=== PATIENT | female | born 1945 | race Caucasian/White ===

== ENCOUNTER 2016-06-02 19:21 | Emergency (ER) | payer MEDICARE ==
[~2016-06-02] VITALS: Ht 172.7 cm; Wt 99.8 kg
[2016-06-02 19:21] VITALS: BP 142/59; PULSE 88; RESP 20; TEMP 97.5; O2SAT 99
--- NOTE | 2016-06-02 19:21 | NUR ---
Patient to ER bed 1 to gown for evaluation. Side rails up. Report given to Isabella PRESTON.
--- NOTE | 2016-06-02 19:21 | NUR ---
Teressa mcginnis in ED - 06/02/16 at 1954 by MOON [facility] rails up. Report given to LEA PRESTON.
[2016-06-02] MEDS ORDERED: NACL 0.9% 1,000 ML IV SCH (19:27)
--- NOTE | 2016-06-02 19:30 | NUR ---
Pt brought in by ALS (whom reports pt was hypotensive en route) BP currently 142/59. Pt [place] was [place] and started feeling lightheaded/dizziness/diaphoretic. Pt afebrile. Pt not complaining of any pain at this time. Pt taking lisinopril and humalog at home. Glucose also checked en route, per pt 225. 20g to L AC placed by paramedics, currently receiving fluids. No acute distress noted at this time. Respirations even and unlabored. Will continue to monitor.
--- NOTE | 2016-06-02 19:46 | NUR ---
ER Dr. Lane at bedside examining patient.
[2016-06-02] MEDS ORDERED: LISI2.5T48 PO (19:58)
[2016-06-02] MEDS ORDERED: ASPI-1063 PO (19:59)
[2016-06-02] MEDS ORDERED: INSU100V7 SUBCUT ×2 (19:59→20:00)
[2016-06-02] MEDS ORDERED: Lisinopril PO (20:02)
[2016-06-02 20:05] LABS: ANION GAP 7 (5-15); CALCIUM 9.4 mg/dL (8.4-11.0); CHLORIDE 97 mmol/L (98-107); CREATININE 1.37 mg/dL (0.55-1.30); GLUCOSE 301 mg/dL (70-99); INR 1.1 (0.8-1.2); POTASSIUM 4.5 mmol/L (3.5-5.1); PROTHROMBIN TIME 11.7 SECS (9.5-12.5); SODIUM SERUM 131 mmol/L (136-145); UREA NITROGEN, BLOOD 25 mg/dL (8-21)
[2016-06-02 20:10] LABS: ALANINE AMINOTRANSFERASE 48 U/L (12-78); ALBUMIN 3.8 g/dL (3.4-4.8); ASPARTATE AMINOTRANSFERASE 35 U/L (10-37); TOTAL BILIRUBIN 0.5 mg/dL (0.0-1.0); TOTAL PROTEIN, SERUM 7.9 g/dL (6.4-8.3)
[2016-06-02 20:11] LABS: MEAN CORPUSCULAR HEMOGLOBIN 32 pg (27-31); MEAN CORPUSCULAR HGB CONC 34 % (32-36); MEAN CORPUSCULAR VOLUME 94 fL (79.0-98.0)
[2016-06-02 20:12] LABS: BASOPHILS # (AUTO) 0.1 K/uL (0.0-0.2); EOSINOPHILS # (AUTO) 0.2 K/uL (0.0-0.4); EOSINOPHILS % (AUTO) 2.1 % (0.0-4.0)
[2016-06-02 20:13] LABS: HEMATOCRIT 42.2 % (36-48); HEMOGLOBIN 14.3 g/dL (12.0-16.0); WHITE BLOOD COUNT (AUTO) 10.9 K/uL (4.8-10.8)
[2016-06-02 20:14] LABS: BASOPHILS % (AUTO) 0.7 % (0.0-2.0); LYMPHOCYTES % (AUTO) 17.9 % (20.5-51.5); MONOCYTES # (AUTO) 0.8 K/uL (0.0-1.0); MONOCYTES % (AUTO) 6.9 % (1.7-9.3); NEUTROPHILS # (AUTO) 7.8 K/uL (1.8-7.7); NEUTROPHILS % (AUTO) 72.4 % (40.0-70.0); PLATELET COUNT (AUTO) 229 K/uL (130-430); RED CELL DISTRIBUTION WIDTH 12.8 % (9.0-15.0)
[2016-06-02] MEDS ORDERED: NACL 0.9% 1,000 ML IV ONE (20:45)
[2016-06-02] MEDS ORDERED: INSULIN REGULAR, HUMAN 10 UNITS/0.1 ML INJ IVP ONE (22:00)
--- NOTE | 2016-06-02 23:30 | NUR ---
Pt assisted to bathroom. Urination successful. Specimen collected and turned into lab.
[2016-06-02 23:46] LABS: BILIRUBIN,URINE NEGATIVE (NEGATIVE); CLARITY/URINE HAZY (CLEAR); COLOR,URINE YELLOW (YELLOW); GLUCOSE,URINE 3+ (NEGATIVE); KETONES,URINE NEGATIVE (NEGATIVE); LEUKOCYTE ESTERASE ,URINE NEGATIVE (NEGATIVE); NITRITE, URINE NEGATIVE (NEGATIVE); PH,URINE 5.5 (5.0-8.0); PROTEIN URINE NEGATIVE (NEGATIVE); UROBILINOGEN,URINE 0.2 (0.2-1.0)
[2016-06-02 23:56] LABS: BLOOD, URINE TRACE (NEGATIVE)
[2016-06-02 23:58] LABS: BACTERIA,URINE MODERATE /HPF (None Seen); MUCUS,URINE None Seen /LPF (None Seen)
[2016-06-03] MEDS ORDERED: cefTRIAXone 1 GM IVPB PREMIX 50 ML IV ONE (00:15)
[2016-06-03] MEDS ORDERED: DIPHENHYDRAMINE INJ 50 MG/ML VIAL IVP ONE ×2 (00:30)
--- NOTE | 2016-06-03 00:58 | NUR ---
Elizabeth called back for transfer information: Pt will go to [facility] room 312. Admitting physician will be Dr. Vaughn, ETA is 1 hr.
--- NOTE | 2016-06-03 02:03 | NUR ---
Called [facility] @ and spoke lachelle Aguilar, pt report endorsed.
--- NOTE | 2016-06-03 02:07 | NUR ---
Patient to be transferred to [facility]. Is being transferred due to higher level of care. Receiving facility has accepting physician and available space. ER physician has signed transfer form. Patient or responsible constitution party has agreed to transfer and signed form. Patient belongings inventoried and will be sent with patient. Copy of nursing notes, lab reports, EKG, Physicians Orders and X-rays to be sent with patient. Report called to Lauren at receiving facility. Receiving physician is Dr Vaughn. [facility] ambulance service has been called for transfer. ETA is 15-20 min.
[2016-06-03 02:08] VITALS: BP 130/56; PULSE 80; RESP 20; TEMP 98.2; O2SAT 97
== END 2016-06-03 02:08 | disposition short-term general hospital (02) ==
LOC: SED 19:21
DX: R55 Syncope and collapse (principal); N39.0 Urinary tract infection, site not specified; E11.9 Type 2 diabetes mellitus without complications; R74.0 Nonspecific elevation of levels of transaminase and lactic acid dehydrogenase [LDH]; I10 Essential (primary) hypertension; Z88.2 Allergy status to sulfonamides; Z88.5 Allergy status to narcotic agent
CPT/HCPCS: 36415; 70450; 71010; 80053; 81000; 82962; 83605; 84484; 85025; 85610; 85730; 87040; 87086; 93005; 96361; 96365; 96375; 99285; J0696; J1200; J1815; J7030